=== PATIENT | male | born 1985 | race Caucasian/White ===

== ENCOUNTER 2017-09-05 17:50 | Emergency (ER) | payer MEDICAID | END 2017-09-05 18:23 | disposition home or self-care (01) | LOC: E/R 17:50 | DX: H10.13 Acute atopic conjunctivitis, bilateral (principal) | CPT/HCPCS: 99283; Z7502 ==

== ENCOUNTER → 2018-08-19 | Emergency (ER) | payer MEDICAID | END | disposition home or self-care (01) | LOC: FTE 14:24 | DX: J40 Bronchitis, not specified as acute or chronic (principal) | CPT/HCPCS: 99283-25 ==